=== PATIENT | female | born 1975 ===

== ENCOUNTER 2025-05-12 10:28 | Outpatient (CLI) | payer BC | END 2025-05-12 10:29 | disposition home or self-care (01) | LOC: SCSRAD 10:28 | PROVIDERS: ATTEND Student in an Organized Health Care Education/Training Program | DX: M54.30 Sciatica, unspecified side (principal); M47.816 Spondylosis without myelopathy or radiculopathy, lumbar region | CPT/HCPCS: 72110 ==